=== PATIENT | female | born 2000 | race Caucasian/White ===

== ENCOUNTER → 2022-12-31 | Outpatient (CLI) | payer OTHER, SELFPAY ==
[2023-01-06 14:50] LABS: HPV Reflexed? NOT INDICATED
== END | disposition home or self-care (01) ==
LOC: LABSPEC 16:43
PROVIDERS: PCP Pediatrics; Visit Provider Advanced Practice Midwife
DX: Z12.4 Encounter for screening for malignant neoplasm of cervix (principal)
CPT/HCPCS: 88175; G0145

== ENCOUNTER → 2024-06-04 | Outpatient (CLI) | payer OTHER, SELFPAY ==
--- NOTE | 2024-06-04 14:57 | US_ITS ---
PROCEDURE: PELVIC W/ TRANSVAGINAL 06/04/2024 REASON FOR EXAM: 23-year-old female, left abdominal/pelvic pain. TECHNIQUE: Transabdominal and transvaginal pelvic ultrasound. Color doppler analysis of the ovaries. COMPARISON: None. FINDINGS: Measurements: Uterus: 8.5 x 4.6 x 3.0 cm with a volume of 60.5 mL Endometrial Thickness: 0.8 cm Right Ovary: 4.3 x 2.2 x 2.0 cm with a volume of 9.8 mL. Left Ovary: 7.3 x 7.1 x 5.4 cm with a volume of 146 mL. Uterus: Anteverted. Normal contour and myometrial echotexture. Endometrium: Normal echotexture. Right ovary: Normal size and echotexture. Left ovary: Large simple left ovarian cyst measuring 7.3 x 6.7 x 5.0 cm. Other adnexal findings: None. Cul-de-sac: Minimal free fluid in the pelvis within normal limits. No tenderness. DOPPLER: Color Doppler: Normal color flow doppler signal at both ovaries. US/Pelvic w/ Transvaginal IMPRESSION: Large simple left ovarian cyst. Follow-up pelvic ultrasound in 6 weeks could b e obtained to evaluate for resolution. Reading Location: [id number]
== END | disposition home or self-care (01) ==
PROVIDERS: PCP Pediatrics; Referring Provider Advanced Practice Midwife; Visit Provider Advanced Practice Midwife
DX: R10.9 Unspecified abdominal pain (principal); N94.6 Dysmenorrhea, unspecified
CPT/HCPCS: 76830; 76856

== ENCOUNTER 2024-06-23 11:46 | Emergency (ER) | payer OTHER, SELFPAY ==
[2024-06-23 11:47] VITALS: BP 120/73; PULSE 69; RESP 19; TEMP 36.2; O2SAT 98; BMI 24.9
--- NOTE | 2024-06-23 11:59 | US_ITS ---
PROCEDURE: TRANSVAGINAL NON- 06/23/2024 REASON FOR EXAM: LEFT PELVIC PAIN. PRIOR CYST. TORSION ??. TECHNIQUE: Transvaginal pelvic ultrasound. Color and spectral doppler analysis of the ovaries. COMPARISON: Pelvic ultrasound 06/04/2024. FINDINGS: Measurements: Uterus: 7.3 x 3.7 x 3.2 cm with a volume of 45 mL Endometrial Thickness: 0.8 cm Right Ovary: 3.0 x 2.6 x 1.4 cm with a volume of 5.6 mL. Left Ovary: 3.6 x 3.2 x 1.5 cm with a volume of 9.0 mL. TRANSVAGINAL: Uterus: Anteverted. Normal contour and myometrial echotexture. Endometrium: Normal echotexture. Right ovary: Normal size and echotexture. Left ovary: Normal size and echotexture. Significantly decreased size of the prior left ovarian cyst, now measuring 2.6 x 2.6 x 0.8 cm. Other adnexal findings: None. Cul-de-sac: Small volume free fluid in the pelvis within normal limits. No tenderness. DOPPLER: Color Doppler: Normal color flow doppler signal at both ovaries. Spectral Doppler: Normal arterial inflow and venous outflow signal at both ovaries. US/Transvaginal Non- IMPRESSION: 1. No evidence of ovarian torsion. 2. Significantly decreased size of the left ovarian cyst. Reading Location: [facility]
--- NOTE | 2024-06-23 12:01 | EDS_ITS ---
HPI HPI - Female History of Present Illness Chief Complaint: Abd Pain Detail of Chief Complaint: Left lower quadrant/pelvic pain. 8 AM this morning. Informant: patient and parent Pain Pain: Positive for Pelvic Pain Onset: Today and Hours (Started 8 AM.) Context: Gradual Onset Timing: Continuous Quality: Positive for Sharp Location: LLQ and - (Left pelvis.) Current Severity: Moderate Maximum Severity: Moderate Worsened by: Movement Bleeding Issue: Positive for Vaginal bleeding and - (On her menstrual period currently.) Onset: Days Context: Gradual Onset Timing: Intermittent Current Severity: Mild Associated Symptoms Associated Symptoms: Negative for Dysuria, Frequency or Urgency P: 0 Ab: 0 Narrative Narrative: 23-year-old female history of a left ovarian cyst. Diagnosed 2 weeks ago. Has been doing well had worsening pain today around 8 AM. Nausea but no vomiting or diarrhea. No fever no dysuria or hematuria. Also currently is on her menstrual period. No prior abdominal or pelvic surgery. No prior . Prior similar symptoms: Yes Recent Illness/Hospitalization: No PFSH PFSH Medical History no medical history Home Medications ?Medication ?Instructions ?Recorded ?Last Taken ?Type NK 05/25/24 Unknown History Allergy/AdvReac Type Severity Reaction Status Date / Time No Known Allergies Allergy Verified 06/23/24 13:52 Family History Grandmother Ovarian cancer Social History current occupational status: student current occupation: [employer] Smoking Status: Never smoker alcohol intake: never substance use type: does not use caffeine: No what type of physical activity do you participate in: none seatbelt use: always ROS ROS ED ROS Narrative Nausea. Left lower quadrant abdominal/pelvic pain. Constitutional Constitutional ED: Denies chills or fever(s) Eyes Eyes: Denies blurry vision ENT ENT ED: Denies ear pain Cardiovascular Cardiovascular: Denies chest pain Respiratory/Chest Respiratory/Chest: Denies cough or dyspnea Gastrointestinal Gastrointestinal: Reports abdominal pain and nausea; Denies constipation, diarrhea, melena or vomiting Genitourinary Genitourinary ED: Denies dysuria or hematuria Musculoskeletal Musculoskeletal: Denies arthralgias, myalgias or neck pain Integumentary Denies abscess or Abrasions Neurologic Neurologic: Denies headache(s) Psychiatric Psychiatric: Denies anxiety or depression Endocrine Endocrinology: Denies heat intolerance Hematologic/Lymphatic Hematologic/Lymphatic: Denies easy bleeding Allergic/Immunologic Allergic/Immunologic ED: Denies mouth swelling, tongue swelling or urticaria EXAM Physical Exam Narrative Exam Narrative: 23-year-old female sitting upright in bed. Mom and significant other present. Vital signs are stable afebrile. Patient does not look septic or toxic. H EENT exam pupils round react light. Moist membranes. Neck nontender. Lungs clear equal symmetrical. Bilateral. Heart regular rhythm rate about 70 no murmur. Abdomen is soft, nondistended normal bowel sounds without peritoneal signs. She does have tenderness in the very low left lower quadrant pelvic area. There is no hernia or mass. No bruising. No signs of trauma. Moving all 4 extremities. Back nontender. Neurologically she is awake and alert. Answer questions following commands. No focal motor deficits. Const Vital Signs: 06/23/24 11:47 06/23/24 13:56 Temperature 97.2 F L 98.4 F Temperature Source Oral Pulse Rate 69 74 Respiratory Rate 19 H 16 Blood Pressure 120/73 113/63 Blood Pressure Mean 88 79 Pulse Ox 98 99 Oxygen Delivery Method Room Air Positive well nourished and well developed; Negative for obese, cachectic, contractures or unkempt General Appearance ED: well developed and NAD; Negative for unkempt, cachectic, contractures or pallor Nutritional Appearance: Negative for cachectic or obese HEENT Reports moist mucous membranes Negative for trauma or tenderness Eyes PERRL and EOMs intact bilaterally General Eye ED: Negative for pale conjunctiva or scleral icterus Neck no lymphadenopathy, supple and no JVD Thyroid: Negative for tender Lymph Lymphatic: Negative for other Chest Wall inspection of chest normal and palpation of chest normal Resp normal respiratory effort and clear to auscultation bilaterally Cardio regular rate, regular rhythm, S1 normal heart sound, no murmurs and no JVD GI normal to inspection, nondistended, normoactive bowel sounds, soft to palpation, non-distended and no masses; Negative for non-tender GI Narrative: Tender left lower quadrant groin area. Auscultation: normoactive bowel sounds Palpation: tender; Negative for guarding, rigid, hepatomegaly, splenomegaly or mass Back/Spine no CVA tenderness Extremity normal to inspection and full ROM Neuro oriented x3 and CN's II-XII intact bilaterally Sensorium / Orientation: alert, oriented to person, oriented to place and oriented to time; Negative for confused, lethargic or stuporous Motor Exam: strength 5/5 throughout Psych mental status grossly normal Appearance: Negative for unkempt Attitude: No agitated Speech: No other Mood & Affect: Negative for depressed, anxious or tearful Skin no rashes or lesions noted and no wounds General Skin Exam: Negative for jaundice or pallor Rashes: No rashes noted Trauma: Negative for other MDM MDM MDM Narrative Medical decision making narrative: 23-year-old female left lower quadrant pelvic pain concern for ovarian cyst rule out torsion. No history of . On her menstrual cycle. No urinary symptoms. She does not wining for pain at this time. She was offered. She does not want an IV at this time. Will obtain a UA and urine test. And a pelvic ultrasound to evaluate for cyst and/or torsion. Versus other etiologies. Repeat exam patient doing well at 2:10 PM. We went over her ultrasound test results. They are comfortable being discharged home. Currently she feels quite well. History & Record Review Discussion w/independent historian: Patient and Family Additional record(s) reviewed:: Prior inpatient record, Prior outpatient record and Prior ED visit Lab Data Attestation: I reviewed the patient's lab results. Lab results narrative: UA normal. No infection. No nitrites. No white or red cells. Urine test negative. Labs: Laboratory Results - last 24 hr 06/23/24 12:10 Urine Color Yellow Urine Clarity Sl. Cloudy Urine pH 6.0 Ur Specific [place] 1.015 Urine Protein 15 H Urine Glucose (UA) Normal Urine Ketones Negative Urine Occult Blood 10 H Urine Nitrite Negative Urine Bilirubin Negative Urine Urobilinogen Normal Ur Leukocyte Esterase Negative Urine RBC 0-5 SEEN Urine WBC 0-5 SEEN Ur Squamous Epith Cells 0-5 SEEN Urine Bacteria 1+ Urine Mucus 0 SEEN Urine Test Negative Radiography Diagnostic Testing: Clinical Impression(s) from Imaging Studies Transvaginal US 06/23/24 11:59 IMPRESSION: 1. No evidence of ovarian torsion. 2. Significantly decreased size of the left ovarian cyst. Reading Location: [facility] Discharge Plan Triage Chief Complaint: Abd Pain ED Provider: Jose Rausch Dx/Rx/DC Orders Clinical Impression: Pelvic pain, Ovarian cyst rupture Instructions: Treating a Ruptured Ovarian Cyst Prescriptions: No Action NK Primary Care Provider: Gus Pro Referrals: Gus Pro MD [Primary Care Provider] - Lima Ngo MD [Med Staff - Active Staff] - 1 Week if not improving Activity Restrictions/Additional Instructions: Left ovarian cyst is much smaller than what it was. Secondary to a ruptured cyst. The fluid is irritating. Your body will absorb that. There is no signs of torsion. You have good blood flow to both ovaries. Motrin and Tylenol for pain. I take like 3 Motrin 600 mg 3 times a day Tylenol in between as needed. Follow-up with your [employer] as needed. Print Language: [place] Island[place] Disposition Disposition: Home, Self Care
[2024-06-23 12:24] LABS: Mucous, Urine 0 SEEN /hpf (<or=2+)
[2024-06-23 12:33] LABS: Color, Urine Yellow (Yellow); Glucose, Dipstick Normal (Normal); Ketone-Dipstick Negative (Negative); Leukocyte Esterase-Dipstick Negative /ul (Negative); Nitrite-Dipstick Negative (Negative); Occult Blood-Urine 10 /ul (Negative); Protein-Dipstick 15 mg/dl (Negative); Specific Gravity, Urine 1.015 (1.002-1.030); Urine Bilirubin Dipstick Negative (Negative); Urine Clarity Sl. Cloudy (Clear); Urine Urobilinogen Normal (Normal)
[2024-06-23 12:39] LABS: Bacteria 1+ /hpf (None Seen); Internal QC Validated? YES +Cl - CLEAR BKGD; Pregnancy, Urine Negative Negative; Red Blood Cells-Urine 0-5 SEEN /hpf (0-5); Squamous Epithelial Cells - UA 0-5 SEEN /hpf (5-10); White Blood Cells 0-5 SEEN /hpf (0-5)
[2024-06-23 13:56] VITALS: BP 113/63; PULSE 74; RESP 16; TEMP 36.9; O2SAT 99
== END 2024-06-23 14:20 | disposition home or self-care (01) ==
PROVIDERS: Emergency Provider Emergency Medicine; PCP Pediatrics; Visit Provider Emergency Medicine
DX: N83.202 Unspecified ovarian cyst, left side (principal); R10.2 Pelvic and perineal pain
CPT/HCPCS: 76830; 99282

== ENCOUNTER → 2024-07-16 | Outpatient (CLI) | payer OTHER, SELFPAY ==
--- NOTE | 2024-07-16 15:42 | US_ITS ---
PROCEDURE: TRANSVAGINAL NON-, 07/16/2024 REASON FOR EXAM: FOLLOW UP LEFT OVARIAN CYST TECHNIQUE: Grayscale and color doppler transvaginal pelvic ultrasound was performed. COMPARISON: 06/23/2024 FINDINGS: Uterus: 8.1 x 4.53.2 cm, Anteflexed. Unremarkable echotexture. Endometrium: 8 mm, echogenic secretory appearance. Cervix: Nabothian cysts. Right ovary: 5.0 x 4.7 x 4.6 cm. Complex mixed cystic and solid-appearing lesion measures 4.6 x 4.2 x 3.6 cm without detected internal vascularity. Reticular/linear internal solid components suggestive of retractile clot. Left ovary: 3.5 x 2.7 x 1.3 cm. Unremarkable. Previous simple appearing unilocular cyst no longer visualized. Free fluid: Small volume free fluid. Other: None. US/Transvaginal Non- IMPRESSION: 1. Previous LEFT ovarian cyst no longer visualized. 2. New 4.6 cm RIGHT ovarian lesion with the appearance compatible with a hemorr hagic cyst, O-RADS 2, no specific follow-up given size less than 5 cm. 3. Small volume free fluid, potentially physiologic in this demographic. 4. Additional description as above. Reading Location: [id number]
== END | disposition home or self-care (01) ==
LOC: US 15:41
PROVIDERS: PCP Pediatrics; Referring Provider Advanced Practice Midwife; Visit Provider Advanced Practice Midwife
DX: N83.209 Unspecified ovarian cyst, unspecified side (principal)
CPT/HCPCS: 76830